=== PATIENT | female | born 1975 ===

== ENCOUNTER 2024-01-12 09:15 | Inpatient (IN) | payer OTHER ==
[~2024-01-12] VITALS: Ht 162.6 cm; Wt 84.8 kg
[2024-01-16] MEDS ORDERED: LOSARTAN POTASS50 MG PO (14:54)
[2024-01-18] MEDS ORDERED: BUPIVACAINE HCL 30 ML VIAL IV ONE (12:30)
[2024-01-18] MEDS ORDERED: SURGIFLO APPLICATOR 1 EACH APPL TOP ONE (12:30)
[2024-01-18] MEDS ORDERED: LIDOCAINE HCL 1%/EPINEPHRINE 20ML VIAL IJ ONE (12:30)
[2024-01-18] MEDS ORDERED: CEFAZOLIN SODIUM 1,000 MG VIAL IV ONE (12:30)
[2024-01-18] MEDS ORDERED: HEMOSTATIC MATRIX 1 KIT KIT TOP ONE (12:30)
[2024-01-18] MEDS ORDERED: POVIDONE-IODINE 118 ML BOTT TOP ONE (12:30)
[2024-01-18] MEDS ORDERED: ONDANSETRON HCL 2 MG/ML VIAL IV PRN (15:00)
[2024-01-18] MEDS ORDERED: RINGERS SOLUTION,LACTATED 1,000 ML IV SCH (15:00)
[2024-01-18] MEDS ORDERED: MORPHINE SULFATE 4 MG/ML CARTRIDGE IV PRN (15:00)
[2024-01-18] MEDS ORDERED: CEFOXITIN SODIUM 2,000 MG VIAL IV SCH (17:00)
[2024-01-18] MEDS ORDERED: SIMETHICONE 125 MG CAPSULE PO SCH (17:00)
[2024-01-18] MEDS ORDERED: KETOROLAC TROMETHAMINE 30 MG VIAL IV SCH (17:00)
[2024-01-18 19:18] LABS: CREATININE SERUM 1.05 mg/dL (0.55-1.02); GFR 55.47; HEMATOCRIT 36.1 % (36.0-45.00); HEMOGLOBIN 11.7 g/dL (12.0-15.00); MEAN CELL VOLUME 82.5 fL (80.00-100.00); MEAN CORPUSCULAR HEMOGLOBIN 26.8 pg (27.00-32.0); MEAN CORPUSCULAR HGB CONC 32.5 g/dl (32.0-36.0); PLATELET COUNT 275 K/uL (150-450); POTASSIUM 4.53 mEq/L (3.5-5.1); RED BLOOD COUNT 4.38 M/uL (4.00-6.00)
[2024-01-18] MEDS ORDERED: FAMOTIDINE/PF 20 MG/2 ML VIAL IV SCH (21:00)
[2024-01-18] MEDS ORDERED: DOCUSATE SODIUM 100MG CAP PO SCH (21:00)
[2024-01-19 03:48] LABS: HEMATOCRIT 34.4 % (36.0-45.00); HEMOGLOBIN 11.3 g/dL (12.0-15.00); MEAN CELL VOLUME 81.5 fL (80.00-100.00); MEAN CORPUSCULAR HEMOGLOBIN 26.8 pg (27.00-32.0); MEAN CORPUSCULAR HGB CONC 32.9 g/dl (32.0-36.0); PLATELET COUNT 264 K/uL (150-450); RED BLOOD COUNT 4.22 M/uL (4.00-6.00); RED CELL DISTRIBUTION WIDTH 15.4 % (11.5-14.5)
[2024-01-19 04:03] LABS: CALCIUM 8.7 mg/dL (8.5-10.1); CREATININE SERUM 1.09 mg/dL (0.55-1.02); GFR 53.13; POTASSIUM 4.12 mEq/L (3.5-5.1)
[2024-01-19] MEDS ORDERED: ENOXAPARIN SODIUM 40 MG/0.4 ML SYRINGE SUBCUTANEO SCH (09:00)
== END 2024-01-19 12:05 | disposition home or self-care (01) | DRG 741 ==
LOC: O/R 01-18 07:07 → SURG 01-18 08:45 → OB/GYN 01-18 16:02
PROVIDERS: ADMIT Obstetrics & Gynecology; ATTEND Obstetrics & Gynecology
PROC: 0UT74ZZ Resection of Bilateral Fallopian Tubes, Percutaneous Endoscopic Approach (ICD-10-PCS; 2024-01-18)
PROC: 0USG4ZZ Reposition Vagina, Percutaneous Endoscopic Approach (ICD-10-PCS; 2024-01-18)
PROC: 0TJB8ZZ Inspection of Bladder, Via Natural or Artificial Opening Endoscopic (ICD-10-PCS; 2024-01-18)
PROC: 0UT94ZZ Resection of Uterus, Percutaneous Endoscopic Approach (ICD-10-PCS; principal; 2024-01-18 08:45)
DX: D06.0 Carcinoma in situ of endocervix (principal); D25.1 Intramural leiomyoma of uterus; N80.03 Adenomyosis of the uterus; Z20.822 Contact with and (suspected) exposure to COVID-19